=== PATIENT | male | born 1940 | race Caucasian/White ===

== ENCOUNTER → 2018-10-27 | Outpatient (REF) | payer OTHER ==
[~2018-10-27] VITALS: Ht 170.2 cm; Wt 73.9 kg
[~2018-10-27] MED LIST: ASPIRIN81 MG PO; GLIPIZIDE10 MG PO; LEVOTHYROXIN125 MCG PO; LIPITOR20 M1 PO; OMEPRAZOLE20 MG PO; PIOGLITAZONE HC30 MG PO; TAMSULOSIN HCL0.4 MG PO; VENLAFAXINE HCL75 M1 PO
[2018-10-27 13:27] VITALS: BP 152/76
== END | disposition home or self-care (01) | DRG 951 ==
LOC: ORM 11:30 → PO 11:38
PROVIDERS: ATTEND Internal Medicine Gastroenterology
DX: Z01.818 Encounter for other preprocedural examination (principal); K92.1 Melena; R19.7 Diarrhea, unspecified; Z86.010 Personal history of colon polyps; K21.9 Gastro-esophageal reflux disease without esophagitis; M48.00 Spinal stenosis, site unspecified; E11.9 Type 2 diabetes mellitus without complications; I25.10 Atherosclerotic heart disease of native coronary artery without angina pectoris; E03.9 Hypothyroidism, unspecified; N40.0 Benign prostatic hyperplasia without lower urinary tract symptoms; Z86.73 Personal history of transient ischemic attack (TIA), and cerebral infarction without residual deficits; Z98.890 Other specified postprocedural states; Z97.2 Presence of dental prosthetic device (complete) (partial)